=== PATIENT | female | born 1965 | race African-American/Black ===

== ENCOUNTER 2017-09-05 01:54 | Emergency (ER) | payer OTHER ==
[~2017-09-05] VITALS: Ht 167.6 cm; Wt 108.9 kg
[2017-09-05 02:35] VITALS: BP 138/87
[2017-09-05 03:03] LABS: Urine Bacteria FEW /hpf (None Seen); Urine Blood Negative /uL (Negative); Urine Hyaline Cast FEW /lpf (0 - 2); Urine Mucus FEW (None Seen); Urine Specific Gravity 1.027 (1.001-1.035); Urine WBC 1 /hpf (0 - 5)
[2017-09-05] MEDS ORDERED: DEXAMETHASONE SOD PHOS 10MG/1ML VIAL INJ IV ONE (05:45)
[2017-09-05] MEDS ORDERED: SODIUM CHLORIDE 0.9% 1,000 ML IV ONE (05:45)
[2017-09-05] MEDS ORDERED: ONDANSETRON HCL 4 MG/2 ML VIAL IV ONE (05:45)
== END 2017-09-05 07:17 | disposition home or self-care (01) ==
LOC: ER 01:56
DX: E86.0 Dehydration (principal); J06.9 Acute upper respiratory infection, unspecified; R91.1 Solitary pulmonary nodule; I10 Essential (primary) hypertension
CPT/HCPCS: 71045; 81001; 96361; 96374; 96375; 99285; J1100; J2405; J7030